=== PATIENT | male | born 1980 | race Caucasian/White ===

== ENCOUNTER 2021-04-01 15:30 | Outpatient (CLI) | payer BC ==
[2021-04-02 00:46] LABS: SARS-CoV-2 PCR by NAA Not Detected (NotDetected)
== END 2021-04-01 15:31 | disposition home or self-care (01) ==
LOC: LABBT 15:30
PROVIDERS: ATTEND Otolaryngology Plastic Surgery within the Head & Neck
DX: Z01.818 Encounter for other preprocedural examination (principal); J34.2 Deviated nasal septum; J32.9 Chronic sinusitis, unspecified; J30.9 Allergic rhinitis, unspecified; R06.5 Mouth breathing; J34.89 Other specified disorders of nose and nasal sinuses; J34.3 Hypertrophy of nasal turbinates; Z20.822 Contact with and (suspected) exposure to COVID-19
CPT/HCPCS: 87635; 93005; 93010; U0003; U0005

== ENCOUNTER 2021-04-06 07:54 | Day surgery (SDC) | payer BC ==
[2021-04-05 14:28] VITALS: BMI 27.8
[2021-04-06] MEDS ORDERED: AFRIN NASAL MIST 15 ML BOT ONE ×2 (09:09→09:57)
[2021-04-06] MEDS ORDERED: Midazolam HCl 2 mg/2 ml Vial ONE (09:09)
[2021-04-06] MEDS ORDERED: Lidocaine 1% w/Epinephrine 1:100K 20 ML VIAL ONE (09:57)
[2021-04-06] MEDS ORDERED: Fentanyl 250 MCG/5 ML VIAL ONE (09:58)
[2021-04-06] MEDS ORDERED: Fentanyl 100 MCG/2 ML VIAL ONE ×2 (10:04→12:24)
[2021-04-06] MEDS ORDERED: Lidocaine 1% PF 5 ML VIAL ONE (11:18)
[2021-04-06] MEDS ORDERED: PROPOFOL 200 MG/20 ML VIAL ONE (11:18)
[2021-04-06] MEDS ORDERED: Ondansetron PF 4 MG/2 ML Vial ONE (11:18)
[2021-04-06] MEDS ORDERED: Dexamethasone 20 MG/5 ML VIAL ONE (11:18)
[2021-04-06] MEDS ORDERED: Glycopyrrolate 0.2 MG/ML 5 ML SYRINGE ONE (11:18)
[2021-04-06] MEDS ORDERED: Rocuronium Bromide 10 MG/ML (10ML VIAL) ONE (11:18)
[2021-04-06] MEDS ORDERED: Bacitracin Zinc Ointment 30 gm TUBE ONE (11:52)
[2021-04-06] MEDS ORDERED: SUGAMMADEX SODIUM 200 MG/2 ML VIAL ONE (12:06)
[2021-04-06] MEDS ORDERED: Morphine 2 MG/ML VIAL ONE (13:34)
[2021-04-06] MEDS ORDERED: Promethazine HCl 25 MG/ML VIAL ONE (13:34)
== END 2021-04-06 15:45 | disposition home or self-care (01) ==
LOC: SDC 07:54
PROVIDERS: ATTEND Otolaryngology Plastic Surgery within the Head & Neck
PROC: 099R8ZZ Drainage of Left Maxillary Sinus, Via Natural or Artificial Opening Endoscopic (ICD-10-PCS; principal; 2021-04-06)
PROC: 099S8ZZ Drainage of Right Frontal Sinus, Via Natural or Artificial Opening Endoscopic (ICD-10-PCS; principal; 2021-04-06)
PROC: 099Q8ZZ Drainage of Right Maxillary Sinus, Via Natural or Artificial Opening Endoscopic (ICD-10-PCS; principal; 2021-04-06)
PROC: 09TV8ZZ Resection of Left Ethmoid Sinus, Via Natural or Artificial Opening Endoscopic (ICD-10-PCS; principal; 2021-04-06)
PROC: 099W8ZZ Drainage of Right Sphenoid Sinus, Via Natural or Artificial Opening Endoscopic (ICD-10-PCS; principal; 2021-04-06)
PROC: 09TL7ZZ Resection of Nasal Turbinate, Via Natural or Artificial Opening (ICD-10-PCS; principal; 2021-04-06)
PROC: 099X8ZZ Drainage of Left Sphenoid Sinus, Via Natural or Artificial Opening Endoscopic (ICD-10-PCS; principal; 2021-04-06)
PROC: 09SM0ZZ Reposition Nasal Septum, Open Approach (ICD-10-PCS; principal; 2021-04-06)
PROC: 099T8ZZ Drainage of Left Frontal Sinus, Via Natural or Artificial Opening Endoscopic (ICD-10-PCS; principal; 2021-04-06)
PROC: 09TU8ZZ Resection of Right Ethmoid Sinus, Via Natural or Artificial Opening Endoscopic (ICD-10-PCS; principal; 2021-04-06)
DX: J32.9 Chronic sinusitis, unspecified (principal); J34.2 Deviated nasal septum; J34.3 Hypertrophy of nasal turbinates; J30.9 Allergic rhinitis, unspecified; J34.89 Other specified disorders of nose and nasal sinuses; Z87.891 Personal history of nicotine dependence; Z79.899 Other long term (current) drug therapy
CPT/HCPCS: J1100; J2250; J2270; J2405; J2550; J2704; J3010